=== PATIENT | female | born 1950 | race Caucasian/White ===

== ENCOUNTER 2017-01-02 12:44 | Day surgery (SDC) | payer MEDICARE, BC ==
[2016-12-28 20:41] LABS: HEMATOCRIT 39.2 % (36.0-48.0); HEMOGLOBIN 12.8 g/dL (12.0-16.0)
--- NOTE | ~2017-01-02 | OP ---
Record Of Operation [facility] [address] [place]. [address] NAME: DERICK COHEN : 50 STATUS : [facility]#: [id number] AGE: 66 ADM/REG DATE : 01/02/17 MR#: [id number] REPORT SERV DATE: 01/03/17 DICTATED BY: ELKE PABLO DATE: 01/02/17 REPORT STATUS : Draft TRANSCRIBED BY: CANDY DATE: 01/02/17 DATE OF PROCEDURE: PREPROCEDURE DIAGNOSIS: Grade 4 internal hemorrhoids with a partial thickness rectal prolapse. POSTPROCEDURE DIAGNOSIS: Grade 4 internal hemorrhoids with a partial thickness rectal prolapse. PROCEDURE: PPH (procedure for prolapse and hemorrhoids) done with HEM stapler measuring 4.8 mm. DESCRIPTION OF PROCEDURE: The patient was taken to the operating room, induced under general anesthesia, placed into the prone marion-knife position, prepped and draped in the usual sterile fashion. Pudendal nerve block was placed with a total of 10 mL of TAP block solution bilaterally, then the anus was dilated first with the fenestrated obturator and then the obturator with clear plastic retractor. Holding this in place, the clear plastic retractor was sewn into place anteriorly and posteriorly with a 2-0 Vicryl UR6 to protect the dentate line. The obturator was removed and the fenestrated obturator with the 2-0 Prolene looped around the bridge was used to place a pursestring suture 4 cm from the dentate line circumferentially. During this process, the tissue was very redundant, prolapsing easily down to the dentate line. Once this was accomplished, the fenestrated obturator was removed. The anvil was placed through the pursestring which was tied around the pursestring and to the second opening, bringing out either side through the opening and tying to the anvil. The anvil was then to the stapler which was tightened until the marker was in the green window. A finger dipped in Betadine paint was used to palpate the posterior vaginal wall. There was no crimping. It was fired and held for 60 seconds, and then turned one turn bringing it out through the anal canal. There was a full 4 cm of rectal mucosa. The fenestrated obturator was used to visualize the staple line circumferentially. There were two areas where there was some minor bleeding, this was controlled with a [id number] 3-0 Vicryl suture on the right and left lateral aspects. Following this, the two stay sutures were cut and the retractor removed. The patient was cleaned and dried followed by two 4x4s, peripad, and mesh panties. She tolerated the procedure well. [place]/CANDY Elke Pablo M.D. / [id number] CC: Elke Pablo M.D. Record Of Operation [address] [address] NAME: DERICK COHEN : 50 STATUS : [facility] PAT#: [id number] AGE: 66 ADM/REG DATE : 01/02/17 MR#: [id number] REPORT SERV DATE: 01/03/17 DICTATED BY: ELKE PABLO DATE: 01/02/17 REPORT STATUS : Draft TRANSCRIBED BY: CANDY DATE: 01/02/17 BONNIE ROD MD, FACOG
[~2017-01-02 12:44] MED LIST: AMB10 PO; CHOLESTEROL; PRILO PO; SYN.05 PO; ZOL100 PO
== END 2017-01-02 18:52 | disposition home or self-care (01) ==
LOC: SDC 12:44
PROVIDERS: Surgery
PROC: 06LY0ZC Occlusion of Hemorrhoidal Plexus, Open Approach (ICD-10-PCS; principal; 2017-01-02 14:00)
DX: K64.3 Fourth degree hemorrhoids (principal); K62.3 Rectal prolapse; K21.9 Gastro-esophageal reflux disease without esophagitis; E03.9 Hypothyroidism, unspecified; F41.9 Anxiety disorder, unspecified; F32.9 Major depressive disorder, single episode, unspecified; Z96.1 Presence of intraocular lens; Z98.41 Cataract extraction status, right eye; Z98.42 Cataract extraction status, left eye; Z90.49 Acquired absence of other specified parts of digestive tract; Z90.89 Acquired absence of other organs; Z98.51 Tubal ligation status; Z98.890 Other specified postprocedural states; Z79.899 Other long term (current) drug therapy
CPT/HCPCS: 36415; 85014; 85018; 88304; 93005; J1885; J2250; J2370; J2405; J2795; J3010